=== PATIENT | female | born 1940 | race Caucasian/White ===

== ENCOUNTER 2023-07-16 15:07 | Inpatient (IN) | payer MEDICARE, OTHER, SELFPAY ==
[2023-07-16] VITALS (9 sets, daily range): BP systolic 135–178; BP diastolic 55–89; BMI 24.0
[2023-07-16 10:24] LABS: % Basophils 0.7 % (0-2); % Eosinophils 5.2 % (0-6); % Immature Granulocytes 0.2 % (0-0.5); % Lymphocytes 19.6 % (20.5-51.1); % Monocytes 11.1 % (1.7-9.3); % Neutrophils 63.2 % (42.2-75.2); Absolute Eosinophils 0.3 10^3/uL (0-0.7); Absolute Lymphocytes 1.2 10^3/uL (1.2-3.4); Absolute Monocytes 0.7 10^3/uL (0.1-0.6); Absolute Neutrophils 3.8 10^3/uL (1.4-6.5); Hematocrit 45.8 % (37.0-47.0); Hemoglobin 13.5 g/dL (12.0-16.0); Mean Corp Hgb Conc. 29.5 g/dL (33.0-37.0); Mean Corpuscular Hgb 27.7 pg (27.0-31.0); Mean Platelet Volume 10.3 fL (7.4-10.4); Nucleated Red Blood Cells % 0 %; Platelet Count 225 10^3/uL (130-400); Red Blood Cell Count 4.87 10^6/uL (4.20-5.40); White Blood Cell Count 5.9 10^3/uL (4.8-10.8)
[2023-07-16 10:31] LABS: ALT (SGPT) 20 U/L (0-35); AST (SGOT) 29 U/L (14-36); Albumin 4.6 g/dl (3.5-5.0); Alkaline Phosphatase 67 U/L (38-126); Blood Urea Nitrogen 19 mg/dl (7-17); Calcium 9.4 mg/dl (8.4-10.2); Carbon Dioxide 31 mmol/L (22-30); Chloride 104 mmol/L (98-107); Glucose 108 mg/dl (70-99); Sodium 140 mmol/L (135-145); Total Bilirubin 1.8 mg/dl (0.2-1.3); Total Protein 7.7 g/dl (6.3-8.2); eGFR > 60.00
[2023-07-16 10:34] LABS: INR 0.95; PT 12.7 Sec (11.4-14.6)
[2023-07-16 10:35] LABS: APTT 28.7 Sec (23.4-35.0)
[2023-07-16 10:40] LABS: NT-proBNP 136 pg/ml
--- NOTE | 2023-07-16 11:43 | ED.GENMED ---
History of Present Illness
General
Chief Complaint: Breathing Problem
Source: patient and family (Daughter)
Exam Limitations: none
Time Seen by Provider: 07/16/23 10:37
Nursing documentation reviewed up to this point in time: agreed with
Travel History
Have you had any contact with someone who has COVID-19?: No
Do you have any symptoms of coronavirus? Fever > 100 degrees, chills, cough, shortness of breath, sore throat, loss of taste or smell, muscle aches, or headache?: No
History of Present Illness
History of Present Illness:
82-year-old female with past medical history of hyperlipidemia, ulcerative colitis (on Humira), CAD status post stent (follows with Dr. Masters for cardiology), former smoker (quit 7 years ago) who presents to the emergency department with her
daughter for evaluation of hypoxia. Patient reports that about a year ago she had an episode of pneumonia and after this episode she had hypoxia that required her to be on home oxygen for a few months. She was weaned off oxygen and oxygen levels
had been normal since then. She says that because of this episode she checks her oxygen level daily. She says that over the past few days she noticed that her oxygen levels have been lower than normal that she says in the high 80s. She says she
was not symptomatic and so she did not think much of it. She says that last night she got an alarm that her oxygen level had dropped to 78%. She says that this morning it was once again in the mid to high 80s and given these low readings she came
to the emergency room for assessment. She says she does not have any symptoms�she does not have any shortness of breath. She has not had any coughing. She denies any chest pain. She denies any edema in her legs. She denies any symptoms at all.
She denies any recent illness. She does see pulmonology Dr. Chambers.
Past History
Past History
ED Past Medical History: CAD and Other (Ulcerative colitis, diabetes, hyperlipidemia, hypertension, coronary disease with stent)
ED Past Surgical History: Cardiac
Social History
Tobacco: Former smoker
Alcohol: None
Drug: None
Personal:
Living: with family
Employment: Employed
Family History
Family History: Other (mother with breast cancer)
Review of Systems
Review of Systems
All Other Systems: ROS reviewed and negative except as documented in HPI and ROS
Constitutional: Denies fever or chills
Respiratory: Denies cough or trouble breathing
Cardiac: Denies chest pain, diaphoresis, palpitations or syncope
ABD/GI: Denies abdominal pain, nausea or vomiting
: Denies flank pain
Musculoskeletal: Denies neck pain or back pain
Neurological: Denies headache, weakness or numbness
Phy Exam
Physical Exam
Physical Exam:
General: Awake, alert, oriented x3; no acute distress
Head: Normocephalic, atraumatic
Eyes: Conjunctiva normal
Throat: Airway intact, handling secretions
Neck: Trachea midline, supple without meningismus
Lungs: Clear to auscultation bilaterally, no wheezing, rales, rhonchi
Heart: Regular rate and rhythm, no murmurs, gallops, or rubs
Abd: Soft, non distended, nontender
Neuro: Cranial nerves grossly intact, speech fluid
Skin: no rash
Extremities: No edema in extremities, equal pulses in all extremities
Scores
Heart Failure Risk
Heart Failure Risk Score: Not Applicable
Heart Score for Chest Pain Patients
STEMI patient?: Not applicable
Withdrawal Assessment of Alcohol
Withdrawal Assessment Completed?: Not applicable
Course
Orders/Labs/Results
Orders:
Orders
07/16/23 10:10
BNP [NT-proBNP] Urgent
Complete Blood Count/With Diff Urgent
Comprehensive Metabolic Panel Urgent
Protime/PTT Urgent
Troponin I [place]gent
Comment: [place] [id number],
07/16/23 10:38
CR Chest - 2 Views Urgent
Comment:
Reason For Exam: hypoxia
07/16/23 11:39
CT Chest Pe Study Urgent
Comment:
Reason For Exam: hypoxia
07/16/23 11:42
Electrocardiogram (*1) Urgent
Reason for Study: Shortness of Breath
EKG- Treatment ONCE
07/16/23 11:50
Add On- LAB Urgent
Tests Added?: troponin
07/16/23 11:58
Carboxyhemoglobin Urgent
Methemoglobin Urgent
07/16/23 12:07
ABG [Arterial Blood Gas] Urgent
%Oxygen/Room Air: 85
Abnormal Lab Results
07/16/23 07/16/23
10:10 12:07
MCHC 29.5 L g/dL
(33.0-37.0)
Absolute Monos (auto) 0.7 H 10^3/uL
(0.1-0.6)
Lymphocytes % 19.6 L %
(20.5-51.1)
Monocytes % 11.1 H %
(1.7-9.3)
pCO2 55 H mmHg
(32-35)
pO2 66 L mmHg
(83-108)
HCO3 32.5 H mmol/L
(21-28)
Carbon Dioxide 31 H mmol/L
(22-30)
BUN 19 H mg/dl
(7-17)
Glucose 108 H mg/dl
(70-99)
Total Bilirubin 1.8 H mg/dl
(0.2-1.3)
07/16/23 10:10
07/16/23 10:10
Vital Signs
Initial and Last Documented VS:
Initial Vital Signs
Temp Pulse Resp BP Pulse Ox
36.8 C 76 18 157/89 85
07/16/23 10:03 07/16/23 10:03 07/16/23 10:03 07/16/23 10:03 07/16/23 10:03
Last Documented Vital Signs
Temp Pulse Resp BP Pulse Ox
36.8 C 76 18 135/66 95
07/16/23 10:03 07/16/23 10:03 07/16/23 10:03 07/16/23 11:00 07/16/23 11:30
MDM/Problems Addressed
Differential Diagnosis Includes:
Pneumonia, pneumothorax, bronchitis, CHF, pulmonary embolism, anemia, carboxyhemoglobinemia, methemoglobinemia
MDM/Problems Addressed:
82-year-old female presents for evaluation of hypoxia�had similar episode last year requiring transient treatment with oxygen after a bout of pneumonia. Has been routinely monitoring her pulse ox and over the past few days has noticed low readings
as low as 78% at home. She says she is asymptomatic. She arrived was hypertensive, hypoxic with pulse ox of 85% requiring 3 L of oxygen to maintain saturations in the low to mid 90s. Will plan to place an IV check labs including a CBC and a CMP,
chest x-ray to start. Monitor closely reassess after the above.
CBC shows no anemia or other acute abnormalities. CMP within acceptable range. Her chest x-ray shows no acute disease. Will need to extend workup for hypoxia as she has continued to drop when weaned off of oxygen. Will send for CTA to rule out
pulmonary embolism. Added on EKG, cardiac enzymes and BNP. Will get an ABG, carboxyhemoglobin and methemoglobin levels. Reassess after the above. Plan for admission pending rest of workup given hypoxia.
CTA shows no PE or other acute pathology. ABG does show hypoxemia with a PaO2 of 66 on 3 L of oxygen. Troponin negative, BNP not significantly elevated. Carboxyhemoglobin/methemoglobin levels normal. No clear etiology to her hypoxia with plan
for admission for continued workup. Discussed with hospitalist for admission.
Acute Exacerbation and/or Progression of Chronic Illness:
Acutely hypertensive resolved without intervention continue to monitor but no additional antihypertensive treatment indicated at present
Acute Exacerbation and/or Progression of Chronic Illness: HTN
*Radiology
Radiology exam reviewed: preliminary read by ED provider and radiology read reviewed
*Pulse Oximetry
Patient hypoxic: yes
*Critical Care Note
Total Time (30-74mins, 75-104mins- exclusive of procedures): Not Applicable
Data Reviewed
Review of Other/Old Records Reveals: Labs, Records, Radiology Studies and Discharge Summary
Source: patient and family (Daughter)
Patient Management
Discussion with other providers: Hospitalist (Discussed with hospitalist)
Escalation/DeEscalation of care consider admission/obs:
Admission indicated
ED Attending Note
-
Portions of this chart may have been created with voice recognition software.� Occasional wrong word or��sound alike� substitutions may have occurred due to the inherent limitations of voice recognition software.
Discharge Plan
Departure
Patient Disposition: Admit
Date of Disposition: 07/16/23
Time of Disposition: 13:52
Admit to doctor: Hogan
Presentation/result/management discussed w/ accepting MD/DO: Hospitalist
Discharge Problem:
Acute hypoxemic respiratory failure
Prescriptions:
No Action
calcium carbonate 500 mg calcium (1,250 mg) Tablet
500 mg PO DAILY
rosuvastatin [Crestor] 20 mg Tablet
20 mg PO DAILY
Humira(CF) Pen 40 mg/0.4 mL pen injector kit
40 mg SC Q14D
turmeric 400 mg Capsule
400 mg PO HS
pantoprazole 40 MG tablet,delayed release (DR/EC)
20 mg PO DAILY
aspirin 81 MG tablet,chewable
81 mg PO DAILY
metoprolol tartrate 25 mg tablet
25 mg PO BID Qty: 60 0RF
Anoro Ellipta 62.5-25 mcg/actuation Blister With Device
1 inh INHALATION R DAILY
Referrals:
Abiel Brown DO [Family Provider] -
Interventions
Interventions:
*Risk Screen - Suicide Last Done: 07/16/23 10:03
*General Assessment Last Done: 07/16/23 10:03
*Neglect/Abuse Screening Last Done: 07/16/23 10:03
ED- Fall Risk Assessment Last Done: 07/16/23 10:49
*ED COVID-19 Vaccine History Last Done: 07/16/23 10:03
ED- Cardiac Assessment Last Done: 07/16/23 10:53
ED- Pulmonary Assessment Last Done: 07/16/23 10:53
[2023-07-16 12:11] LABS: Carboxyhemoglobin 3.5 %
[2023-07-16 12:24] LABS: B.E. 5.8 mmol/L; HCO3 32.5 mmol/L (21-28); O2 Saturation % 94.2 % (94-98); PCO2 55 mmHg (32-35); PO2 66 mmHg (83-108); pH 7.38 (7.35-7.45)
[2023-07-16 13:07] LABS: Troponin I < 0.012 ng/ml
--- NOTE | 2023-07-16 14:17 | HPS.HSE ---
Addendum entered and electronically signed by Irineo Hogan MD 07/16/23 16:09:
Seen and examined by me independently in collaboration with the nurse practitioner Veronica.
Past medical history/social history/medication/allergies reviewed.
Lab data and imaging data reviewed.
Patient with underlying diagnosis of COPD presents with noticing hypoxia on pulse oximetry. She is not symptomatic particularly with her hypoxia. Denies shortness of breath at rest.
Evaluation so far here both clinical and testing shows no acute issue.
No evidence of acute COPD flare. No evidence of pneumonia. No evidence of pulmonary parenchymal abnormalities no evidence of PE. No evidence of heart failure.No carboxy or methemoglobinemia.
Unknown COPD stage. Depending on the status may be hypoxia is related just to COPD. Will consult pulmonary to see if any need to evaluate for pulmonary AVMs.
Assess for home O2
Original Note:
Family Physician
-
Family Physician: Abiel Brown
Chief Complaint
-
Hypoxia
History of Present Illness
82-year-old female who reports over the past few days she has noticed that her oxygen has been in the high 80s but then dropped to 78% last night. She does report she has been sneezing for the past few days has only been out to [facility] multiple times.
She lives by herself in a carriage house behind her daughter reports no one else is sick. She follows with Dr. Chambers for history of COPD, former smoker quit 7 years ago and used to be on oxygen status post pneumonia but had weaned. She denies
current fever, chills, chest pain, palpitations, abdominal pain, nausea, vomiting, diarrhea, urinary symptoms
PMH COPD, former smoker, HTN, CAD status post CYN, ulcerative colitis on Humira, chronic immunosuppression, GERD
Medical History
Past Medical History
Past Medical History: Reports Other
Additional Past Medical History:
Primary hypertension
COPD
Tobacco abuse
CAD status post CYN
Chronic immunosuppression
Ulcerative colitis
Hyperlipidemia
Past Surgical History: Reports Other
Additional Past Surgical History:
Laparoscopic cholecystectomy 12/14/2022
Benign tumor under right ear resection 2013,
glaucoma surgery May 2016,
cardiac cath with stent December 2016
Social History
Tobacco: Former Smoker (Prior 30-year 1 pack a day quit 2016)
Alcohol: None
Drug: None
Personal: Single
Living: Alone (Carriage house behind daughter)
Employment: Retired
Family History
Family History: Cancer (Breast cancer mother)
Allergies / Home Medications
Allergies reflects when Allergies were last updated in [facility].
Home Medications with original date entered in [facility]
Allergy/Medication List:
Allergies
Allergy/AdvReac Type Severity Reaction Status Date / Time
No Known Allergies Allergy Verified 07/16/23 10:48
Home Medications
adalimumab 40 mg/0.4 mL subcutaneous pen kit (Humira(CF) Pen) 40 mg SC Q14D Autoimmune Disorder 09/30/22
calcium carbonate 500 mg calcium (1,250 mg) tablet 500 mg PO DAILY Supplement 09/30/22
rosuvastatin 20 mg tablet (Crestor) 20 mg PO HS High Cholesterol 09/30/22
turmeric 400 mg capsule 400 mg PO HS Supplement 09/30/22
metoprolol tartrate 25 mg tablet 25 mg PO BID #60 tabs 10/24/22
umeclidinium 62.5 mcg-vilanterol 25 mcg/actuation powdr for inhalation (Anoro Ellipta) 1 inh inhalation R DAILY 12/14/22
acetaminophen 325 mg tablet (Tylenol) 650 mg PO TIDPRN PRN mild pain 07/16/23
aspirin 81 mg tablet,delayed release 81 mg PO DAILY 07/16/23
bismuth subsalicylate 262 mg tablet (Pepto-Bismol) 524 mg PO DAILYPRN PRN stomach issues 07/16/23
mometasone 0.1 % topical cream 1 applic topical BIDPRN PRN apply where bug bites appear 07/16/23
pantoprazole 20 mg tablet,delayed release 20 mg PO DAILY 07/16/23
Review of Systems
-
History Source: Patient
A 12 point ROS was completed and negative except as noted: Yes
Constitutional: Denies Fever or Fatigue
EENT: Reports Other (Sneezing); Denies Sore Throat or Runny Nose
Respiratory: Reports Other (Hypoxia); Denies Cough or Trouble Breathing
Cardiac: Denies Chest Pain, Diaphoresis, Palpitations or Syncope
Abdomen/GI: Denies Abdominal Pain, Nausea, Vomiting, Diarrhea, Constipated, Bloody Stools or Black Stools
: Denies Dysuria, Frequency, Flank Pain, Incontinence, Difficulty Voiding or Urgency
Musculoskeletal: Denies Joint Pain or Edema
Skin: Denies Itching or Rash
Neurological: Denies Dizzy, Headache or Weakness
Endocrine: Reports No Symptoms
Hematologic/Lymphatic: Reports No Symptoms
Psych: Reports Calm
Physical Exam
Vital Signs
Vital Signs
Temp Pulse Resp BP Pulse Ox
98.2 F 76 18 135/66 95
07/16/23 10:03 07/16/23 10:03 07/16/23 10:03 07/16/23 11:00 07/16/23 11:30
Physical Exam
General: Comfortable and Conversant; No Fever or Chills
HEENT: NormoCephalic, Anicteric, PERRLA, [place] Conjunctivae, No Ptosis and Oxygen (3 L nasal cannula)
Respiratory: Clear; No Wheezes, Rales or Rhonchi
Cardiac: S1/S2 and Regular Rhythm; No Murmur, Rub, Gallop or Peripheral Edema
Breast: Deferred by me
GI: Soft, Non Tender, Non Distended, Normal Bowel Sounds and No Hepatosplenomegaly
Rectal: Deferred by Provider
Genito-urinary: Deferred by me
Musculoskeletal: No Clubbing, No Cyanosis and No Edema
Skin: Warm and Dry; No Rash or Jaundice
Neuro: AO x 3, No Motor Deficits, Nonfocal/grossly intact, Cranial Nerves Intact and No Sensory Deficits; No Slurred Speech, Facial Droop or Tremors
Psych: Calm
Laboratory Results
-
07/16/23 10:10
07/16/23 10:10
Laboratory Results
PT Cancelled 07/16/23 11:41
INR Cancelled 07/16/23 11:41
APTT Cancelled 07/16/23 11:41
pH 7.38 (7.35-7.45) 07/16/23 12:07
pCO2 55 mmHg (32-35) H 07/16/23 12:07
pO2 66 mmHg (83-108) L 07/16/23 12:07
HCO3 32.5 mmol/L (21-28) H 07/16/23 12:07
Total Bilirubin 1.8 mg/dl (0.2-1.3) H 07/16/23 10:10
AST 29 U/L (14-36) 07/16/23 10:10
ALT 20 U/L (0-35) 07/16/23 10:10
Alkaline Phosphatase 67 U/L (38-126) 07/16/23 10:10
Troponin I Cancelled 07/16/23 11:42
Data Reviewed
-
Diagnostic Radiology: Report Reviewed by me
CT Scan: Report Reviewed by me
Lab Data: Labs Reviewed by me
Impression/Plan
-
Impression/plan:
Admit to MedSurg
#Acute hypoxic respiratory failure acute on chronic COPD exacerbation vs progression of disease
#Chronic hypercarbia/former smoker
85% RA, 95% on 3 L nasal cannula
- Covid NEG
-Consult Pulmonary
-Continue Anora Ellipt
- consult Pt for home [address] chest no evidence of PE
CXR: No active cardiopulmonary disease
#Ulcerative colitis on chronic Humira
#Chronic immunosuppression
-Hold Humira
#CAD/cardiac stent
-Follows with [facility]ology
-Continue beta-chalo, aspirin, Crestor
#HTN�benign
135
-Continue metoprolol tartrate 25 mg twice daily
#GERD
-Continue Protonix 20 mg daily
#History of laparoscopic cholecystectomy 12/14/2022
DVT prophylaxis
Subcu Lovenox
DNR per patient
[2023-07-16 15:34] LABS: COVID-19 Antigen Negative (Negative)
--- NOTE | 2023-07-16 15:56 | CON.PUL ---
Consultation
Consultation Request
Date/Time Consultation Requested: 07/16/23
Date/Time Consultation Performed: 07/16/23
Performing Provider: Kirk
Reason for Consultation: Hypoxemia
Medical History
-
History of Present Illness:
Patient is an 82-year-old female with history of COPD, HTN, who reports over the past few days she has noticed that her oxygen has been in the high 80s but then dropped to 78% last night.� She has known history of COPD and follows with Dr. Chambers,
last PFT in 2022 showing moderate obstruction for which she takes Anoro. She does not use oxygen at baseline, had in the past briefly when she had PNA, but was able to wean off. She is not sure what triggered sudden hypoxemia. She has no worsening
lung complaints, and denies triggers for this including recent infection/illness/exposure. She checks her pulse often at home, which shows sporadic desaturation into low 80s with recover to 99% on her trend within the same minute. These desats are
concentrated at night but she is not sleeping and she denies exertional hypoxemia. She denies snoring.
CXR and CT completed in ER are normal, on arrival she was noted to be 85% on RA and improved to 92% on 2L.
Past Medical History
Past Medical History: Other (see list below)
Social History
Tobacco: Former Smoker
Alcohol: None
Drug: None
Family History
Family History: Reviewed & Not Pertinent
Allergies / Home Medications
Allergies
Allergy/AdvReac Type Severity Reaction Status Date / Time
No Known Allergies Allergy Verified 07/16/23 10:48
Home Medications
Medication Instructions Recorded Confirmed Last Taken Type
adalimumab 40 mg/0.4 mL 40 mg SC Q14D Autoimmune Disorder 09/30/22 07/16/23 2 Weeks Ago History
subcutaneous pen kit (Humira(CF) ~07/02/23
Pen)
calcium carbonate 500 mg calcium 500 mg PO DAILY Supplement 09/30/22 07/16/23 07/15/23 History
(1,250 mg) tablet
rosuvastatin 20 mg tablet (Crestor) 20 mg PO HS High Cholesterol 09/30/22 07/16/23 07/15/23 History
turmeric 400 mg capsule 400 mg PO HS Supplement 09/30/22 07/16/23 07/15/23 History
metoprolol tartrate 25 mg tablet 25 mg PO BID #60 tabs 10/24/22 07/16/23 07/15/23 Rx
umeclidinium 62.5 mcg-vilanterol 1 inh inhalation R DAILY 12/14/22 07/16/23 07/16/23 History
25 mcg/actuation powdr for
inhalation (Anoro Ellipta)
acetaminophen 325 mg tablet 650 mg PO TIDPRN PRN mild pain 07/16/23 07/16/23 1 Week Ago History
(Tylenol) ~07/09/23
aspirin 81 mg tablet,delayed 81 mg PO DAILY 07/16/23 07/16/23 07/15/23 History
release
bismuth subsalicylate 262 mg 524 mg PO DAILYPRN PRN stomach 07/16/23 07/16/23 1 Week Ago History
tablet (Pepto-Bismol) issues ~07/09/23
mometasone 0.1 % topical cream 1 applic topical BIDPRN PRN apply 07/16/23 07/16/23 Unknown History
where bug bites appear
pantoprazole 20 mg tablet,delayed 20 mg PO DAILY 07/16/23 07/16/23 07/15/23 History
release
Review of Systems
-
History Source: Patient
All other systems: Negative unless noted
Vitals / Labs / Diagnostic Testing
Vital Signs
Temp Pulse Resp BP Pulse Ox
98.2 F 76 18 155/59 93
07/16/23 10:03 07/16/23 10:03 07/16/23 10:03 07/16/23 14:13 07/16/23 15:00
Lab Data
07/16/23 10:10
07/16/23 10:10
Laboratory Results
07/16/23 07/16/23 07/16/23
10:10 11:41 12:07
PT 12.7 Cancelled
INR 0.95 Cancelled
APTT 28.7 Cancelled
pH 7.38
pCO2 55 H
pO2 66 L
HCO3 32.5 H
O2 Delivery Level
Diagnostic Testing:
Physical Exam
-
HEENT: Normocephalic, Anicteric and Moist Mucous Membranes
Cardiovascular: S1/S2 and Regular Rhythm
Respiratory: Non-Labored Respirations
GI: Soft, Non Distended and Non Tender
Neurology: Awake, Alert, Oriented, AO x 3 and No Motor Deficits
Skin: Warm, Dry and Good Color
General: Comfortable and Other (NAD)
Assessment
-
Patient is an 82-year-old female with history of COPD, HTN, who reports over the past few days she has noticed that her oxygen has been in the high 80s but then dropped to 78% last night.� CXR and CT completed in ER are normal, on arrival she was
noted to be 85% on RA and improved to 92% on 2L. We are consulted for eval of new hypoxemia.
Acute hypoxic respiratory failure on O2
Chronic Co2 retention 7.38/55
Mildly elevated bilirubin
Conditions present [employer]
Moderate COPD
Follows with [facility] in office, last seen 2022
Former smoker: Quit smoking in 2016. 61-cdpi-pcvl history
CAD s/p FL/stent 2017
Ulcerative colitis 2018� �
Diabetes type 2-medication induced� �
GERD� �
Hay fever� �
Cataracts�s/p removal
Hypertension� �
Colonic polyps� �
History of PNA, urinary tract infection� �
Tumor removal benign right neck� � 06/2013� �
Cholecystectomy� � Nov 2022� �
Plan
Hypoxemia noted on arrival, O2 genaro 85% she is placed on 2L NC
No oxygen was needed previously at baseline
Prior history of lung disease is noted:
She has known history of COPD and follows with Dr. Chambers,
Last PFT in 2022 showing moderate obstruction for which she takes Anoro
She does not use oxygen at baseline, had in the past briefly when she had PNA, but was able to wean off
Unclear cause of hypoxemia, will repeat PFT/6MWT
Will also obtain overnight ox
She does not think she snores
ABG showing compensated CO2 retention which raises suspicion for KIRT
CXR/CT obtained indicating no lung disease, neg for PE
We will rule out other causes of hypoxemia
ECHO from 2019 reviewed--repeat new study
Will need outpatient pulmonary evaluation in our office for further testing upon discharge
Reviewed with patient
Risk factors assessed for underlying sleep disordered breathing also noted, recommend outpatient PSG/sleep evaluation
Smoking history noted--former
Son a bedside, updated as well
Patient is DNR
We will follow
Diagnostic Data
Chest X-Ray 07/16/23: No active cardiopulmonary disease.
CT Scan: 07/16/23 CHEST - No evidence of central pulmonary embolism. The trachea and central airways are patent. There is no focal parenchymal consolidation, pneumothorax, pleural effusion or mediastinal shift. Some mild scarring is again seen most
prominent in the right middle lobe and lingula. There is no significant hilar, mediastinal or axillary lymphadenopathy.
10/22/22- There is no pulmonary embolism; No active cardiopulmonary disease; Mild linear parenchymal scarring in the lingula and right middle
Echo: 06/02/18- �Normal left ventricular size and systolic function. �Left ventricular ejection fraction is 55-60%.�Borderline concentric left ventricular hypertrophy.�The diastolic filling pattern suggests possible mild abnormal relaxation.�No
significant valvular disease.�When compared to echocardiogram from 12/26/2016, there is no significant�change.
PFT's: 10/23/22 FEV1 1.09L 66%, FVC 1.69L 75%, ratio 64. post FEV1 1.08L 65%, moderate obstruction
Reports and relevant images were personally reviewed.
--- NOTE | 2023-07-16 18:35 | PTCARENOTE ---
received pt to 3W from ED. Pt oriented to room, assessment complete, VSS. Pt resting comfortably, call santos within reach. No c/o of respiratory distress.
[2023-07-16] MEDS: CRESTOR 20 MG PO (22:32)
[2023-07-16] MEDS: LOPRESSOR 25 MG PO (22:32)
[2023-07-17 05:34] LABS: % Basophils 0.5 % (0-2); % Eosinophils 6.3 % (0-6); % Immature Granulocytes 0.3 % (0-0.5); % Lymphocytes 23.6 % (20.5-51.1); % Monocytes 13.5 % (1.7-9.3); % Neutrophils 55.8 % (42.2-75.2); Absolute Eosinophils 0.4 10^3/uL (0-0.7); Absolute Lymphocytes 1.4 10^3/uL (1.2-3.4); Absolute Monocytes 0.8 10^3/uL (0.1-0.6); Absolute Neutrophils 3.4 10^3/uL (1.4-6.5); Hematocrit 39.9 % (37.0-47.0); Hemoglobin 12.2 g/dL (12.0-16.0); Mean Corp Hgb Conc. 30.6 g/dL (33.0-37.0); Mean Corpuscular Hgb 28.2 pg (27.0-31.0); Mean Corpuscular Volume 92.4 fL (81.0-99.0); Mean Platelet Volume 10.4 fL (7.4-10.4); Nucleated Red Blood Cells % 0 %; Platelet Count 203 10^3/uL (130-400); Red Blood Cell Count 4.32 10^6/uL (4.20-5.40); Red Cell Dist. Width 12.1 % (11.5-14.5)
[2023-07-17 05:55] LABS: Blood Urea Nitrogen 19 mg/dl (7-17); Carbon Dioxide 33 mmol/L (22-30); Chloride 101 mmol/L (98-107); Estimated Creatinine Clearance 56 ml/min; Glucose 105 mg/dl (70-99); Potassium 4.6 mmol/L (3.5-5.1); Sodium 139 mmol/L (135-145); eGFR > 60.00
[2023-07-17 07:00] VITALS: BP 129/63
[2023-07-17] MEDS: PROTONIX 20 MG PO (08:36)
[2023-07-17] MEDS: ASPIR LOW (ENTERIC COATED) 81 MG PO (08:36)
[2023-07-17] MEDS: LOPRESSOR 25 MG PO (08:36)
[2023-07-17] MEDS: OSCAL CAL 500 500 MG PO (08:37)
[2023-07-17] MEDS: TYLENOL 650 MG PO (09:02)
--- NOTE | 2023-07-17 09:35 | W.PN.PUL3 ---
Today's Communication / Plan
-
PFT showing decline from prior, ambulatory testing showing need for 3L with exertion
Overnight testing showing significant desaturation, will likely need to use 2L nocturnally but will need FU outpatient sleep study to re-eval this
ECHO pending
Home O2 set up per team
This was reviewed in detail with patient and daughter
Ongoing w/u is needed as outpatient
However if ECHO showing severe PH, cards eval would be recommended
Discussed in detail with care team
Assessment
-
Patient is an 82-year-old female with history of COPD, HTN, who reports over the past few days she has noticed that her oxygen has been in the high 80s but then dropped to 78% last night.� CXR and CT completed in ER are normal, on arrival she was
noted to be 85% on RA and improved to 92% on 2L. We are consulted for eval of new hypoxemia.
Acute hypoxic respiratory failure on O2
Chronic Co2 retention 7.38/55
Mildly elevated bilirubin
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
Moderate COPD
Follows with [facility] in office, last seen 2022
Former smoker: Quit smoking in 2016. 34-geao-icnc history
CAD s/p OR/stent 2017
Ulcerative colitis 2018� �
Diabetes type 2-medication induced� �
GERD� �
Hay fever� �
Cataracts�s/p removal
Hypertension� �
Colonic polyps� �
History of PNA, urinary tract infection� �
Tumor removal benign right neck� � 06/2013� �
Cholecystectomy� � Nov 2022� �
Plan
Hypoxemia noted on arrival, O2 genaro 85% she is placed on 2L NC
No oxygen was needed previously at baseline
Prior history of lung disease is noted:
She has known history of COPD and follows with Dr. Chambers,
Last PFT in 2022 showing moderate obstruction for which she takes Anoro
She does not use oxygen at baseline, had in the past briefly when she had PNA, but was able to wean off
Unclear cause of hypoxemia, will repeat PFT/6MWT
This was reviewed, PFT showing declined from prior but still within moderate category
6MWT showing 91% sat at rest, but need for 3L with exertion
Overnight ox reviewed with prolonged sustained hypoxemia >6 hours and 2 hours below 80%, see report
She does not think she snores--i would recommend outpatient PSG with O2 assessment
ABG showing compensated CO2 retention which raises suspicion for KIRT
CXR/CT obtained indicating no lung disease, neg for PE
We will rule out other causes of hypoxemia
ECHO from 2019 reviewed--repeat new study, pending
Will need outpatient pulmonary evaluation in our office for further testing upon discharge
Reviewed with patient
Risk factors assessed for underlying sleep disordered breathing also noted, recommend outpatient PSG/sleep evaluation
Smoking history noted--former
Son a bedside, updated as well
Patient is DNR
Home O2 set up per team
This was reviewed in detail with patient and daughter
Ongoing w/u is needed as outpatient
However if ECHO showing severe PH, cards eval would be recommended
Discharge planning reviewed with team
TT spent in care of this patient: 51 mins.
Diagnostic Data
Chest X-Ray 07/16/23: No active cardiopulmonary disease.
CT Scan: 07/16/23 CHEST - No evidence of central pulmonary embolism. The trachea and central airways are patent. There is no focal parenchymal consolidation, pneumothorax, pleural effusion or mediastinal shift. Some mild scarring is again seen most
prominent in the right middle lobe and lingula. There is no significant hilar, mediastinal or axillary lymphadenopathy.
10/22/22- There is no pulmonary embolism; No active cardiopulmonary disease; Mild linear parenchymal scarring in the lingula and right middle
Echo: 06/02/18- �Normal left ventricular size and systolic function. �Left ventricular ejection fraction is 55-60%.�Borderline concentric left ventricular hypertrophy.�The diastolic filling pattern suggests possible mild abnormal relaxation.�No
significant valvular disease.�When compared to echocardiogram from 12/26/2016, there is no significant�change.
PFT's: 10/23/22 FEV1 1.09L 66%, FVC 1.69L 75%, ratio 64. post FEV1 1.08L 65%, moderate obstruction
Spirometry 07/16/23: FEV1 0.81L 50%, FVC 1.19L 45%, ratio 68. Post FEV1 0.87L 53% no BD response
Overnight oximetry 07/16/23: performed on room air; lowest O2 genaro 50%, prolonged desaturation noted with total accumulated time <89% 6h 26m 10s about 2 hours of that time <80%
Home O2 assessment, 91% on RA with O2 genaro 84% requiring 3L to maintain sat >90%
Reports and relevant images were personally reviewed.
Subjective Data
-
Date of Service:
Date of Service: July 17, 2023
Chief Complaint: Pulmonary Follow Up
Subjective:
patient seen and examined, no acute events on
daughter at bedside
remains comfortable, no new complaints
Objective Data
Data Reviewed
Vital Signs / I&O / Oxygen:
Vital Signs
Temp Pulse Resp BP Pulse Ox
98.3 F 70 18 129/63 94
07/17/23 07:00 07/17/23 07:00 07/17/23 07:00 07/17/23 07:00 07/17/23 07:00
Intake and Output
07/16/23 07/17/23 07/18/23
06:59 06:59 06:59
Intake Total 480 / 480
Balance 480 / 480
SaO2 94
Nasal Cannula flow liters per 2
minute
Physical Exam
General: Comfortable and Other (NAD)
HEENT: Normocephalic, Anicteric and Moist Mucous Membranes
Cardiovascular: S1-S2 and Regular Rhythm
Respiratory: Clear and Non-Labored Respirations
GI: Soft, Non Distended and Non Tender
Neurology: Awake, Alert, Oriented, AO x 3 and No Motor Deficits
Skin: Warm, Dry and Good Color
Labs/Micro/Reports
Lab Data
07/17/23 05:13
07/17/23 05:13
Laboratory Results
07/16/23 07/16/23 07/16/23
10:10 11:41 12:07
PT 12.7 Cancelled
INR 0.95 Cancelled
APTT 28.7 Cancelled
pH 7.38
pCO2 55 H
pO2 66 L
HCO3 32.5 H
O2 Delivery Level
[2023-07-17] MEDS: STRIVERDI RESPIMAT 2 PUFF INH (10:05)
[2023-07-17] MEDS: SPIRIVA RESPIMAT 2.5 MCG 2 PUFF INH (10:05)
--- NOTE | 2023-07-17 11:49 | W.PN.HOSP.TC ---
Addendum entered and electronically signed by Irineo Hogan MD 07/17/23 15:19:
Patient is in need of oxygen at 2 liters/minute via nasal cannula continuously due to pulse oximetry of 91% on room air at rest. Would need O2 3l via NC with exertion as her O2 drops to 84% on RA ,improved with 3l to 92% Oxygen will help to improve
hypoxemia. Patient is mobile within the home. DuoNeb therapy has been tried and is ineffective in treating hypoxemia related symptoms. Oxygen is needed to improve symptoms.
Original Note:
Today's Communication/Plan
-
Home O2 eval
Follow pulm recs
DC planning
Assessment / Plan
Assessment / Plan
#Acute hypoxic respiratory insufficiency vs possibly chronic hypoxic respiratory insufficiency.
#Chronic hypercarbia/former smoker with compensated respiratory acidosis
# Moderate COPD without evidence of flare
Patient noticed the hypoxia on her home pulse oximetry but she was not particularly symptomatic.
85% RA, 95% on 3 L nasal cannula
- Covid NEG
-�CT chest�no evidence of PE , pneumonia, or pulmonary parenchymal abnormalities
-No carboxy or methemoglobinemia
-No evidence of CHF
- Eval for home O2 while hypoxia eval on going.
- Appt pulm input �� ���
#Ulcerative colitis on chronic Humira
#Chronic immunosuppression
-cw Humira
#CAD/cardiac stent
-Follows with [facility]
-Continue beta-chalo, aspirin, Crestor
#HTN�benign
-Continue metoprolol tartrate 25 mg twice daily
#GERD
-Continue Protonix 20 mg daily
#History of laparoscopic cholecystectomy 12/14/2022
DVT prophylaxis
Subcu Lovenox
DNR per patient
Anticipated Discharge: Today
Subjective/Interval History
-
Date of Service: July 17, 2023
Denies any shortness of breath. No cough. No wheezing.
No chest pain.
No fever or chills.
Objective Data
-
Labs:
Laboratory Results
07/17/23
05:13
WBC 6.0
Hgb 12.2
Hct 39.9
Plt Count 203
Sodium 139
Potassium 4.6
Chloride 101
Carbon Dioxide 33 H
BUN 19 H
Creatinine 0.6
Glucose 105 H
Calcium 9.0
Vital Signs:
Vital Signs
Temp Pulse Resp BP Pulse Ox
98.3 F 70 18 129/63 92
07/17/23 07:00 07/17/23 10:05 07/17/23 10:05 07/17/23 07:00 07/17/23 10:05
I&O
07/16/23 07/17/23 07/18/23
06:59 06:59 06:59
Intake Total 480 / 480
Balance 480 / 480
Review of Systems
-
EENT: Denies Sore Throat
Abdomen/GI: Denies Abdominal Pain, Nausea or Vomiting
Neuro: Denies Dizzy
Physical Exam
-
General: No Apparent Distress
HEENT: Moist Mucous Membranes
Respiratory: Negative Wheezes or Crackles
Cardiac: Regular Rhythm and S1/S2
GI: Soft
Musculoskeletal: No Edema
Neuro: AO x 3
Data Reviewed
-
Labs: Labs Reviewed by me
[2023-07-17 13:11] VITALS: BP 166/69; PULSE 70; O2SAT 93
[2023-07-17] MEDS: NON-FORMULARY ITEM 1 UNIT SC (13:19)
--- NOTE | 2023-07-17 14:02 | W.DS.TRANS ---
DC Summary - Pasteurizer
-
Discharge Instructions:
Discharge Diagnosis/Procedures COPD; new hypoxia needing home O2
Diet Regular
Activity As tolerated
Driving Restrictions As prior to admission
Bathing Restrictions None
Instructions:
Stand-Alone Forms:
Changes to Home Medications: No
Discharge Medications:
DC Medications w/original date entered in [facility]
adalimumab 40 mg/0.4 mL subcutaneous pen kit (Humira(CF) Pen) 40 mg SC Q14D Ulcerative colitis 09/30/22
calcium carbonate 500 mg calcium (1,250 mg) tablet 500 mg PO DAILY Supplement 09/30/22
rosuvastatin 20 mg tablet (Crestor) 20 mg PO HS High Cholesterol 09/30/22
turmeric 400 mg capsule 400 mg PO HS Supplement 09/30/22
metoprolol tartrate 25 mg tablet 25 mg PO BID #60 tabs 10/24/22
umeclidinium 62.5 mcg-vilanterol 25 mcg/actuation powdr for inhalation (Anoro Ellipta) 1 inh inhalation R DAILY Lung/Breathing Issues 12/14/22
acetaminophen 325 mg tablet (Tylenol) 650 mg PO TIDPRN PRN mild pain 07/16/23
aspirin 81 mg tablet,delayed release 81 mg PO DAILY Blood Clot Prevention/Tx 07/16/23
bismuth subsalicylate 262 mg tablet (Pepto-Bismol) 524 mg PO DAILYPRN PRN stomach issues 07/16/23
mometasone 0.1 % topical cream 1 applic topical BIDPRN PRN apply where bug bites appear 07/16/23
pantoprazole 20 mg tablet,delayed release 20 mg PO DAILY Gastrointestinal Issue 07/16/23
Home Medication Changes
Pending Results: No
[2023-07-17 14:55] VITALS: BP 130/64
--- NOTE | 2023-07-17 16:06 | CM ---
Alert awake oriented patient who lives alone who lives in a 1 story home with 6 steps to enter and bed bathroom on first floor.She is independent in driving and in all activities of daily living.Offered VN she requested [facility] hope aware.
ordered home oxygen. Spoke with patient and daughter Deysi. They had no preference of DME but wanted it set up today. Han from [employer] [phone] Clinical script to [phone]. Portable oxygen [id number] to room.Pt and Deysi aware
they need to call for concentrator to be delivered to home today.
Oxygen HCS
[facility] yhx / No SNF
Pharmacy [facility]
PCP Dr Brown
PLAN Home with [facility] and [facility] oxygen
--- NOTE | 2023-07-17 16:09 | VNURNOTE ---
Home Health Liaison spoke with patient at 1600 by phone to discuss [facility] nurse/therapy, visits, schedule and homebound status. Patient is agreeable and understands that visits at home will be 2-3 x per week to assess and teach medical management.
[facility] brochure provided with contact information. Patient is aware that [facility] will contact them for start of care in 1-2 days after discharge from .
[facility] referral completed in [facility].
CM ordering home O2 with [employer].
--- NOTE | 2023-07-18 16:37 | W.DCSUMMARY ---
Discharge Summary
Discharge Data
Date of Admission: 07/16/23
Date of Discharge: 07/18/23
-
Pending Results: No
Hospital Course
Primary diagnosis:
Hypoxic respiratory insufficiency suspected chronic
Chronic hypercapnia with compensated respiratory acidosis
Moderate chronic obstructive pulmonary disease
Secondary diagnosis:
Ulcerative colitis on Humira
Coronary artery disease with prior coronary stent
Benign Hypertension
Hospital course:
Patient with a history of moderate COPD and a prior pneumonia leaving her with the need of oxygen for few months and subsequent normalization.
She keeps monitoring her oxygenation and lately started to go down. When it went down 78% of O2 at home she presented to hospital.
She evaluation including a CT chest which showed no PE, pulmonary parenchymal lung disease. There was no evidence of COPD flare. Echo showed normal EF , no Pulmonary HTN and there was no evidence of heart failure. There was no evidence of carboxy
or methemoglobinemia. She had pulmonary function test and according to pulmonary showing a decline from prior. Suspicion is that this is progression of her COPD. She had a home O2 evaluation and home O2 was arranged and she qualified for it. She
will follow-up with pulmonary as an outpatient
Consultants on board:
Pulmonary Dr Bradley
Discharge Plan
-
Patient Disposition: Home with Home Care
Discharge Diagnosis/Procedures: COPD; new hypoxia needing home O2
Diet: Regular
Activity: As tolerated
Driving Restrictions: As prior to admission
Bathing Restrictions: None
Referrals:
Hina Bradley, [Active] -
(3-4 weeks, PFTs, 6MWT
Sleep study)
Abiel Brown DO [Family Provider] - in less than 1 week
Prescriptions:
Continued
calcium carbonate 500 mg calcium (1,250 mg) Tablet
500 mg PO DAILY
rosuvastatin [Crestor] 20 mg Tablet
20 mg PO HS
Humira(CF) Pen 40 mg/0.4 mL pen injector kit
40 mg SC Q14D
Patient Comments:
07/16/2023, per pt., next dose is due tomorrow (07/17/2023).
turmeric 400 mg Capsule
400 mg PO HS
metoprolol tartrate 25 mg tablet
25 mg PO BID Qty: 60 0RF
Anoro Ellipta 62.5-25 mcg/actuation Blister With Device
1 inh INHALATION R DAILY
acetaminophen [Tylenol] 325 mg Tablet
650 mg PO TIDPRN PRN (Reason: mild pain)
aspirin 81 mg Tablet,Delayed Release (Dr/Ec)
81 mg PO DAILY
pantoprazole 20 mg Tablet,Delayed Release (Dr/Ec)
20 mg PO DAILY
Patient Comments:
07/16/2023, per pt., she is using older prescription.
Pepto-Bismol 262 mg Tablet
524 mg PO DAILYPRN PRN (Reason: stomach issues)
mometasone 0.1 % Cream
1 applic TOPICAL BIDPRN PRN (Reason: apply where bug bites appear)
Discharge Orders:
Discharge Patient (As Directed); Ordered 07/17/23
Ordered By: Irineo Hogan
Discharge Date and Time
Discharge Date/Time: 07/17/23 17:31
== END 2023-07-17 17:31 | disposition home health service (06) | DRG 191 ==
LOC: 3 WEST ACU 15:07
PROVIDERS: Clinical Nurse Specialist Family Health; Emergency Medicine; ADMITTING PHYSICIAN Internal Medicine; CONSULT PHYSICIAN Internal Medicine; EMERGENCY PHYSICIAN Emergency Medicine; FAMILY PHYSICIAN Family Medicine
DX: J44.9 Chronic obstructive pulmonary disease, unspecified (principal); D84.821 Immunodeficiency due to drugs; K51.90 Ulcerative colitis, unspecified, without complications; E87.29 Other acidosis; Z79.620 Long term (current) use of immunosuppressive biologic; I25.10 Atherosclerotic heart disease of native coronary artery without angina pectoris; K21.9 Gastro-esophageal reflux disease without esophagitis; Z66 Do not resuscitate; R06.89 Other abnormalities of breathing; Z95.5 Presence of coronary angioplasty implant and graft; I10 Essential (primary) hypertension; R09.02 Hypoxemia; Z11.52 Encounter for screening for COVID-19
CPT/HCPCS: 71046; 71275; 80048; 80053; 82375; 82805; 83050; 83880; 84484; 85025; 85610; 85730; 87811; 93005; 93306; 94060; 94640; 94762; 97161; 99285; Q9967

== ENCOUNTER → 2023-08-24 | Outpatient (REF) | payer MEDICARE, OTHER, SELFPAY | LOC: DHSLP | PROVIDERS: ATTENDING PHYSICIAN Internal Medicine Critical Care Medicine; FAMILY PHYSICIAN Family Medicine | DX: G47.33 Obstructive sleep apnea (adult) (pediatric) (principal) | CPT/HCPCS: 95800 ==

== ENCOUNTER 2023-10-21 06:26 | Day surgery (SDC) | payer MEDICARE, OTHER, SELFPAY ==
[2023-10-21 10:26] VITALS: BMI 24.0
[2023-10-21 10:28] VITALS: BMI 24.0
[2023-10-21 10:29] VITALS: BP 104/62
[2023-10-21 12:56] VITALS: BP 137/64
[2023-10-21 13:00] VITALS: BP 123/64
[2023-10-21 13:15] VITALS: BP 135/77
== END 2023-10-21 13:28 | disposition home or self-care (01) ==
LOC: GI 06:26
PROVIDERS: ATTENDING PHYSICIAN Internal Medicine
DX: Z12.11 Encounter for screening for malignant neoplasm of colon (principal); K51.50 Left sided colitis without complications; K64.9 Unspecified hemorrhoids; K63.89 Other specified diseases of intestine; K57.30 Diverticulosis of large intestine without perforation or abscess without bleeding; D12.3 Benign neoplasm of transverse colon; K52.9 Noninfective gastroenteritis and colitis, unspecified
CPT/HCPCS: 45385; 45380; 45381; 88305

== ENCOUNTER 2024-01-26 06:31 | Day surgery (SDC) | payer MEDICARE, OTHER, SELFPAY ==
[2024-01-26 11:46] VITALS: BMI 23.8
[2024-01-26 11:47] VITALS: BP 137/54; BMI 23.8
[2024-01-26 14:30] VITALS: BP 127/67
[2024-01-26 14:45] VITALS: BP 136/69
[2024-01-26 14:51] VITALS: BP 147/68
[2024-01-26 14:55] VITALS: BP 147/68
== END 2024-01-26 15:06 | disposition home or self-care (01) ==
LOC: GI 06:31
PROVIDERS: ATTENDING PHYSICIAN Internal Medicine Gastroenterology
DX: D12.3 Benign neoplasm of transverse colon (principal); K57.30 Diverticulosis of large intestine without perforation or abscess without bleeding; K51.40 Inflammatory polyps of colon without complications; K64.0 First degree hemorrhoids
CPT/HCPCS: 45385; 88305